=== PATIENT | female | born 1980 | race Hispanic/Latino ===

== ENCOUNTER 2018-11-08 09:25 | Emergency (ER) | payer SELFPAY ==
[~2018-11-08] VITALS: Ht 165.1 cm; Wt 81.2 kg
[2018-11-08] MEDS ORDERED: NOVOLIN R100 UNIT/1 (09:52)
[2018-11-08] MEDS ORDERED: METFORMIN HCL500 MG PO (09:53)
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
[2018-11-08 13:39] VITALS: BP 122/76
== END 2018-11-08 14:00 | disposition home or self-care (01) ==
LOC: ER 09:25
DX: M54.2 Cervicalgia (principal); M54.5 Low back pain; S13.4XXA Sprain of ligaments of cervical spine, initial encounter; S33.5XXA Sprain of ligaments of lumbar spine, initial encounter; V43.52XA Car driver injured in collision with other type car in traffic accident, initial encounter; Y92.488 Other paved roadways as the place of occurrence of the external cause
CPT/HCPCS: 71046; 72050; 72110; 81025; 99283

== ENCOUNTER 2019-09-11 07:27 | Emergency (ER) | payer SELFPAY ==
[~2019-09-11] VITALS: Ht 165.1 cm; Wt 81.2 kg
[~2019-09-11 07:27] MED LIST: METFORMIN HCL500 MG PO; NOVOLIN R100 UNIT/1
--- NOTE | 2019-09-11 07:43 | Emergency Department Note ---
History of Present Illnes History of Present Illness Chief Complaint: COVID PUI History of Present Illness This is a 39 year old female arrives to the ED with complaints of cough and generalized malaise. Patient stated daughter's father tested positive, and she was around him all of last week. Historian: Patient Arrival Mode: Car Onset (how long ago): day(s) Radiation: Reports non-radiation Severity: mild Onset quality: sudden Duration (how long): day(s) Timing of current episode: constant Progression: unchanged Chronicity: new Relieving factors: none Exacerbating factors: none Past Medical/Family History Physician Review I have reviewed the patient's past medical and family history. Any updates have been documented here. Past Medical History Recent Fever: Yes Clinical Suspicion of Infectio: Yes New/Unexplained Change in Ment: No Past Medical History: Diabetes Past Surgical History: Social History Smoking Cessation: Never Smoker Counseling Performed: No Alcohol Use: Social Physically hurt or threatened: No Review of Systems Review of Systems Constitutional: Reports as per HPI, Reports chills, Reports fever EENTM: Reports no symptoms Cardiovascular: Reports no symptoms Respiratory: Reports as per HPI, Reports cough Gastrointestinal: Reports no symptoms Genitourinary: Reports no symptoms Musculoskeletal: Reports no symptoms Integumentary: Reports no symptoms Neurological: Reports no symptoms Psychological: Reports no symptoms Endocrine: Reports no symptoms Hematological/Lymphatic: Reports no symptoms Physical Exam Related Data Allergies: Coded Allergies: No Known Allergies (Unverified , 11/08/18) Triage Vital Signs Vital Signs Date Time Temp Pulse Resp B/P (MAP) Pulse Ox O2 Delivery O2 Flow Rate FiO2 09/11/19 07:33 97.6 57 22 111/65 100 Room Air Vital signs reviewed: Yes Physical Exam CONSTITUTIONAL Constitutional: Present well-developed, Present well-nourished HENT HENT: Present normocephalic, Present atraumatic, Present oropharynx clear/moist, Present nose normal HENT L/R: Present left ext ear normal, Present right ext ear normal EYES Eyes: Reports PERRL, Reports conjunctivae normal NECK Neck: Present ROM normal PULMONARY Pulmonary: Present effort normal, Present breath sounds normal CARDIOVASCULAR Cardiovascular: Present regular rhythm, Present heart sounds normal, Present capillary refill normal, Present normal rate GASTROINTESTINAL Abdominal: Present soft, Present nontender, Present bowel sounds normal GENITOURINARY Genitourinary: Present exam deferred SKIN Skin: Present warm, Present dry MUSCULOSKELETAL Musculoskeletal: Present ROM normal NEUROLOGICAL Neurological: Present alert, Present oriented x 3, Present no gross motor or sensory deficits PSYCHOLOGICAL Psychological: Present mood/affect normal, Present judgement normal Assessment & Plan Medical Decision Making MDM 39-year-old well-appearing female arrives to the ED with complaints of cough fever loss of taste and smell. Patient is clinically presenting with signs and symptoms consistent with Covid 19. Patient informed she is positive until proven otherwise. Patient's oxygen saturation remained 99% even on exertion, no evidence of tachypnea or dyspnea noted in the ED. Spoke present length about the importance of sleeping on her stomach and rotating from side to side. Z-Corky given, signs and symptoms for return discussed. In the light of the Covid pandemic, disaster medicine care was given- patient understands why she was not tested for Covid 19 in the ED, no indications for a chest x-ray at this time given normal oxygen saturation and respiratory status. Assessment & Plan Final Impression: (1) COVID-19 Depart Disposition: HOME, SELF-CARE Last Vital Signs Date Time Temp Pulse Resp B/P (MAP) Pulse Ox O2 Delivery O2 Flow Rate FiO2 09/11/19 07:33 97.6 57 22 111/65 100 Room Air Home Meds Reported Medications Metformin Hcl (METFORMIN HCL) 500 Mg Tablet, 500 MG PO BID, #60 TAB 11/08/18 Insulin Regular, Human (NOVOLIN R) 100 Unit/1 Ml Vial, 20 BID 11/08/18 MELANIE FULLER DO Sep 11, 2019 07:43
== END 2019-09-11 07:41 | disposition home or self-care (01) ==
LOC: ER 07:29
DX: U07.1 COVID-19 (principal); R05 Cough; R53.81 Other malaise; E11.9 Type 2 diabetes mellitus without complications
CPT/HCPCS: 99282